=== PATIENT | male | born 1955 | race Caucasian/White ===

== ENCOUNTER 2018-07-10 07:21 | Day surgery (SDC) | payer OTHER ==
[2018-07-10] MEDS ORDERED: EPINEPHrine 30 MG/30 ML MDV (0.1 MG/0.1 ML) ONE (07:29)
[2018-07-10] MEDS ORDERED: BUPIVACAINE/EPI 0.5% 30 ML SDV ONE (07:29)
[2018-07-10] MEDS ORDERED: ceFAZolin 2 GM/DEXTROSE 100 ML IV ONE (07:39)
[2018-07-10] MEDS ORDERED: LR 1,000 ML IV SCH ×2 (07:39→12:00)
[2018-07-10] MEDS ORDERED: LR 1,000 ML IV ONE (07:40)
--- NOTE | 2018-07-10 08:22 | PDANEPAE ---
ANE Past Medical History - Cardiovascular History Hx Hypertension: Yes Hx Arrhythmias: Yes Hx Chest Pain: No Hx Coronary Artery / Peripheral Vascular Disease: Yes Hx CHF / Valvular Disease: No Hx Palpitations: Yes Cardiovascular History Comment: [place] 10/2017 - [facility] RCA. Staged PCI 12/2018 - [facility] OM1. 07/05/2018 - Cardiology okay to stop DAPT. ATRIAL FIB. OCCAS CHEST PAIN W /STRESS - Pulmonary History Hx COPD: No Hx Asthma/Reactive Airway Disease: No Hx Recent Upper Respiratory Infection: No Hx Oxygen in Use at Home: No Hx Sleep Apnea: Yes Sleep Apnea Screening Result - Last Documented: Positive Pulmonary History Comment: POS NESSA W/CPAP - Neurologic History Hx Cerebrovascular Accident: No Hx Seizures: No Hx Dementia: No - Endocrine History Hx Diabetes: Yes Endocrine History Comment: DM 2 - Renal History Hx Renal Disorders: No - Liver History Hx Hepatic Disorders: No - Neurological & Psychiatric Hx Hx Neurological and Psychiatric Disorders: Yes Neurological / Psychiatric History Comment: 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 HIATAL HERNIA. Jan 2010 Ventral Hernia Repair with mesh, then removal of mesh 2011. Hemorrhoidectomy. Right hand surgery. ANE Review of Systems Review of Systems: - Exercise capacity METS (RN): 5 METS ANE Patient History - Allergies Allergies/Adverse Reactions: No Known Allergies Allergy (Unverified 01/25/11 19:40) - Home Medications Home Medications: Aspirin 81mg 01/25/11 [Last Taken 1 Week Ago ~07/03/18] OXYCODONE HCL 01/25/11 [Last Taken 07/09/18] Actos 07/04/18 [Last Taken 07/09/18] Atorvastatin Calcium 07/04/18 [Last Taken Unknown] Gabapentin 07/04/18 [Last Taken Unknown] Glipizide 07/04/18 [Last Taken 07/09/18] Nitrostat 07/04/18 [Last Taken Unknown] Toprol Xl 07/04/18 [Last Taken 07/08/18] Zoloft 100mg (*) 07/04/18 [Last Taken 2 Days Ago ~07/08/18] - NPO status NPO Since - Liquids (Date): 07/10/18 NPO Since - Liquids (Time): 05:00 NPO Since - Solids (Date): 07/09/18 NPO Since - Solids (Time): 22:30 - Smoking Hx Smoking Status: Former smoker - Family Anes Hx Family Hx Anesthesia Complications: None ANE Labs/Vital Signs - Vital Signs Vital Signs: reviewed preoperatively; see RN documention for details Blood Pressure: 117/66 Heart Rate: 63 Respiratory Rate: 15 O2 Sat (%): 99 Height: 167.64 cm Weight: 81.647 kg ANE Physical Exam - Airway Neck exam: FROM Mallampati Score: Class 2 Mouth exam: normal dental/mouth exam - Pulmonary Pulmonary: clear to auscultation - Cardiovascular Cardiovascular: regular rate and rhythym - ASA Status ASA Status: III ANE Anesthesia Plan Anesthesia Plan: GA w LMA
--- NOTE | 2018-07-10 08:51 | GHP ---
[f rep st] HISTORY AND PHYSICAL CURRENT COMPLAINT: Left knee pain. HISTORY OF PRESENT ILLNESS: The patient is a 62-year-old male with pain to the medial portion of his left knee, as well as swelling in the anterior portion of his left knee that he would like dealt wit h. The patient has an MRI demonstrating a complex tear of the posterior horn of the medial meniscus, and a large prepatellar bursa with mild osteoarthritis noted within. ALLERGIES: He lists no drug allergies. CURRENT MEDICATIONS: Include aspirin, Atorvastatin, Clopidogrel, gabapentin, glipizide, metoprolol, nitroglycerin, pioglitazone, sertraline. PRIOR MEDICAL PROBLEMS: Include: Anemia, diabetes, heart disease, hernia, sleep apnea. PAST SURGICAL HISTORY: Include a mitral valve surgery in the past. SOCIAL HISTORY: He is a former smoker. He is not a drinker. PHYSICAL EXAMINATION: HEENT: Pupils equal, round, and reactive to light. CHEST: Clear to ausculta tion. HEART: Regular rate and rhythm. ABDOMEN: Soft and nontender. The left knee reveals prepate llar bursa swelling, as well as tenderness to the medial joint line. MRI exam reveals complex tear of the medial meniscus. Moderate osteoarthritic changes of the medial compartment, and a prepatellar bursa. PLAN: Was taken to the operating room to undergo a left knee arthroscopy with an open excision of hi s left prepatellar bursa. /[id number]/MODL
[2018-07-10] MEDS ORDERED: METOPROLOL SUCCINATE XR 50 MG TAB PO SCH (09:00)
[2018-07-10] MEDS ORDERED: MIDAZOLAM 2 MG/2 ML VIAL IVP ONE ×2 (09:04→09:58)
--- NOTE | 2018-07-10 09:14 | PDHPUP ---
History & Physical Update H&P update statement: This history and physical update is based on an assessment of the patient which was completed after admission or registration (within 24 hours), but prior to the surgery/procedure. H&P update: H&P reviewed & patient examined, no change in patient's condition since H&P completed
[2018-07-10] MEDS ORDERED: fentaNYL 100 MCG/2 ML INJ ONE ×2 (09:51→11:02)
[2018-07-10] MEDS ORDERED: PROPOFOL 200 MG/20 ML VIAL ONE (09:51)
[2018-07-10] MEDS ORDERED: METOCLOPRAMIDE 10 MG/2 ML VIAL ONE (09:55)
[2018-07-10] MEDS ORDERED: RANITIDINE 50 MG/2 ML VIAL ONE (10:02)
[2018-07-10] MEDS ORDERED: KETOROLAC 30 MG/1 ML SDV ONE (10:54)
[2018-07-10] MEDS ORDERED: ONDANSETRON 4 MG/2 ML VIAL ONE (10:54)
[2018-07-10] MEDS ORDERED: MEPERIDINE 25 MG/0.5 ML AMP IVP PRN (10:59)
[2018-07-10] MEDS ORDERED: fentaNYL 100 MCG/2 ML INJ IVP PRN (10:59)
[2018-07-10] MEDS ORDERED: NALOXONE HCL 0.4 MG/ML INJ IVP PRN (10:59)
[2018-07-10] MEDS ORDERED: oxyCODONE IR 5 MG TAB PO PRN ×2 (10:59→11:35)
[2018-07-10] MEDS ORDERED: ALBUTEROL 3 ML DEYVIAL IH PRN (10:59)
[2018-07-10] MEDS ORDERED: LR 500 ML IV PRN (10:59)
[2018-07-10] MEDS ORDERED: HYDROmorphONE/DILAUDID 2 MG/ML INJ IVP PRN (10:59)
[2018-07-10] MEDS ORDERED: PROMETHAZINE HCL 25 MG/ML INJ IVP PRN ×2 (10:59→11:35)
[2018-07-10] MEDS ORDERED: ONDANSETRON 4 MG/2 ML VIAL IVP PRN ×2 (10:59→11:35)
[2018-07-10] MEDS ORDERED: METOCLOPRAMIDE 10 MG/2 ML VIAL IVP PRN ×2 (10:59→11:35)
[2018-07-10] MEDS ORDERED: ACETAMINOPHEN 500 MG TAB PO PRN (10:59)
[2018-07-10] MEDS ORDERED: KETOROLAC 15 MG/1 ML SDV IVP ONE (11:35)
[2018-07-10] MEDS ORDERED: POLYETHYLENE GLYCOL 3350 17 GM PKT PO PRN (11:35)
[2018-07-10] MEDS ORDERED: BISACODYL 10 MG SUPP PR PRN (11:35)
[2018-07-10] MEDS ORDERED: ONDANSETRON DISINTEGRATING 4 MG TAB PO PRN (11:35)
[2018-07-10] MEDS ORDERED: PROMETHAZINE HCL 25 MG SUPPR PR PRN (11:35)
[2018-07-10] MEDS ORDERED: TEMAZEPAM 15 MG CAP PO PRN (11:35)
[2018-07-10] MEDS ORDERED: LACTULOSE 20 GM/30 ML UDCUP PO PRN (11:35)
[2018-07-10] MEDS ORDERED: DIPHENOXYLATE/ATROPINE LOMOTIL 1 TAB PO PRN (11:35)
[2018-07-10] MEDS ORDERED: MAGNESIUM HYDROXIDE 30 ML UDCUP PO PRN (11:35)
[2018-07-10] MEDS ORDERED: CYCLOBENZAPRINE 10 MG TAB PO PRN (11:35)
[2018-07-10] MEDS ORDERED: diphenhydrAMINE 25 MG CAP PO PRN (11:35)
--- NOTE | 2018-07-10 11:35 | POSTOPPROG ---
Post Op Note Date of Operation: 07/10/18 Surgeon: Pratibha Ashby Anesthesia: LMA Pre-op Diagnosis: l mmt/lmt/oa/pre-patellar bursitis Procedure: l knee scope w/ partial med/lat meniscetomy/chondroplasty/open exc prepatea Inf/Abcess present in the surg proc area at time of surgery?: No Depth: Deep Incisional (Fascial) EBL: 100-500
--- NOTE | 2018-07-10 12:28 | POSTANESTH ---
Post Anesthetic Evaluation Cardiovascular Status: Normal, Stable Respiratory Status: Normal, Stable Level of Consciousness/Mental Status: Can Participate in Eval Pain Control: Adequate, Prn Tx Ordered Nausea/Vomiting Control: Adequate, Prn Tx Ordered Complications Possibly Related to Anesthesia: None Noted
[2018-07-10 12:46] VITALS: BP 123/74
--- NOTE | 2018-07-10 14:23 | GOP ---
[f rep st] OPERATIVE REPORT DATE OF OPERATION: 07/10/2018 SURGEON: Pratibha Ashby MD ANESTHESIA: LMA. PREOPERATIVE DIAGNOSIS: Left knee medial meniscal tear and lateral meniscal tear with prepatellar bu rsitis. POSTOPERATIVE DIAGNOSIS: Left knee medial meniscal tear and lateral meniscal tear with prepatellar b ursitis, grade 3 chondral changes of the trochlea, grade 2 chondral changes of patella and grade 3 ch ondral changes of the medial compartment. PROCEDURE PERFORMED: Open left prepatellar bursa excision with left knee arthroscopy with partial me dial, partial lateral meniscectomy, and chondroplasty of the patellofemoral and medial compartments a s well as removal of the anterior synovium from the knee. FINDINGS: INDICATIONS: This is a 62-year-old male with a several-month history of left knee pain worsening wit h use and with time. He also complains of a large amount of swelling in the anterior portion of his knee. MRIs revealed a fragmented fibrillated tear of the medial meniscus as well as a small tear of the lateral meniscus, some osteoarthritic changes as well as a large prepatellar bursa. He wishes to have these issues resolved. DESCRIPTION OF PROCEDURE: Patient was brought to the operating room after the left side had been svetlana ntified as correct side by the patient, nurse, and physician. Once in the operating room, he was nell andrew under general anesthesia using an LMA. Once asleep, tourniquet was placed around the upper porti on of the left thigh and both legs placed in appropriate leg kessler. The left lower extremity was th en sterilely prepped and draped in usual fashion using GSI solution. Once prepped and draped, limb w as exsanguinated, tourniquet inflated to 250 mmHg. Incision was made in the superomedial portion of the knee with an outflow trocar introduced without difficulty. A 2nd incision was made lateral to th e patellar tendon between the inferior pole of the patella and tibial plateau with the camera introdu andrew without difficulty. Inspection of the joint revealed no loose bodies in the suprapatellar pouch, the medial or lateral gutter. There were grade 2 chondral changes of the patella and grade 3 chondr al changes of the trochlea. Further inspection revealed the ACL ligament to be intact. Inspection o f the medial compartment revealed abundant amount of grade 3 chondral changes throughout the medial c ompartment as well as a fragmented fibrillated tear of the body and posterior horn of the medial meni scus. Inspection of the lateral compartment revealed tearing of the root of the posterior horn of th e lateral meniscus as well as fraying of the body. Therefore, a third incision was made medial to th e patellar tendon between the inferior pole of the patella and tibial plateau, and alternatingly usin g a straight biter and a 4.5 mm smooth shaver was used to debride and debulk tears of the medial and lateral meniscus, and the shaver was used to remove the loose fragments of cartilage from the medial compartment and from the patellofemoral compartment. The abundant amount of synovium in the [place] pa d and the medial and lateral gutter were removed using the shaver. Once completed, all instruments w ere removed from the knee with 30 cc of Marcaine infused in the knee joint. The 3 portal sites were closed using 3-0 nylon suture in a [id number] type stitch. A 6 cm incision was made centered di rectly over the patella with sharp dissection carried down through the skin and subcutaneous layers f inding the bursal sac below. There was abundant amount of synovial tissue and fluid within the sac. The sac was then able to be morselized and taken out in pieces due to its large extent. The wound w as then thoroughly irrigated with antibiotic solution. 2-0 Vicryl suture used to tack the skin onto the underlying tissue in 3 different places on either side of the wound, and then 2-0 Vicryl suture w as used to tack the actual incision itself onto the underlying tissue in order to gain good appositio n of the overlying tissue. Once completed, a 3-0 nylon suture was used in a running subcuticular sti tch for the skin. The wound was dressed with Steri-Strips. All wounds were then dressed with Xerofo rm, 4 x 4's, wrapped in Kerlix. Tourniquet was deflated at 53 minutes. Leg was completely undraped in the operating room, tourniquet removed from the thigh and an Barrie wrap placed around the knee. Rig ht leg was taken out of its leg kessler. He was placed supine. He was woken up, extubated, transferr ed onto a stretcher, and sent to the recovery room in good condition. TOURNIQUET TIME: 53 minutes. /[id number]/MODL
[2018-07-10] MEDS ORDERED: ACETAMINOPHEN 325 MG TAB PO SCH (17:36)
[2018-07-10] MEDS ORDERED: SENNOSIDES/DOCUSATE SODIUM TAB PO SCH (21:00)
[2018-07-10] MEDS ORDERED: FAMOTIDINE 20 MG TAB PO SCH (21:00)
== END 2018-07-10 13:06 | disposition home or self-care (01) ==
LOC: FSGY 07:21
PROVIDERS: ATTEND Orthopaedic Surgery
PROC: 0SBD4ZZ Excision of Left Knee Joint, Percutaneous Endoscopic Approach (ICD-10-PCS; principal; 2018-07-10 09:00)
PROC: 0MBP0ZZ Excision of Left Knee Bursa and Ligament, Open Approach (ICD-10-PCS; principal; 2018-07-10 09:00)
DX: M23.222 Derangement of posterior horn of medial meniscus due to old tear or injury, left knee (principal); M23.252 Derangement of posterior horn of lateral meniscus due to old tear or injury, left knee; M70.42 Prepatellar bursitis, left knee; M94.262 Chondromalacia, left knee; I25.10 Atherosclerotic heart disease of native coronary artery without angina pectoris; Z95.5 Presence of coronary angioplasty implant and graft; Z79.02 Long term (current) use of antithrombotics/antiplatelets; Z79.82 Long term (current) use of aspirin; E11.9 Type 2 diabetes mellitus without complications; Z87.891 Personal history of nicotine dependence
CPT/HCPCS: J0171; J0690; J1885; J2250; J2405; J2704; J2765; J2780; J3010

== ENCOUNTER → 2018-09-07 | Outpatient (CLI) | payer OTHER | LOC: CIMAGING 12:12 | PROVIDERS: ATTEND Physician Assistant | DX: M71.22 Synovial cyst of popliteal space [Baker], left knee (principal) | CPT/HCPCS: 93971-PO ==